=== PATIENT | male | born 1950 | race American Indian/Alaskan Native ===

== ENCOUNTER 2017-08-24 07:43 | Emergency (ER) | payer MEDICARE, OTHER ==
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
[2017-08-24 08:10] LABS: Basophils % (Auto) 0.2 % (0.0-1.8); Eosinophils % (Auto) 10.5 % (0.0-4.3); Hematocrit 42.3 % (35.5-45.6); Hemoglobin 14.1 gm/dl (11.8-15.2); Lymphocytes # (Auto) 2.5 K/mm3 (1.2-5.4); Lymphocytes % (Auto) 26.3 % (13.4-35.0); Mean Corpuscular HGB Conc 33 % (32-34); Mean Corpuscular Hemoglobin 31 pg (28-32); Mean Corpuscular Volume 92 fl (84-94); Monocytes # (Auto) 0.8 K/mm3 (0.0-0.8); Monocytes % (Auto) 8.6 % (0.0-7.3); Platelet Count 288 K/mm3 (140-440); Red Blood Count 4.61 M/mm3 (3.65-5.03)
[2017-08-24 08:24] LABS: INR 1.04 (0.87-1.13)
--- NOTE | 2017-08-24 08:29 | Cat Scan Report ---
CT HEAD WITHOUT CONTRAST: HISTORY: Headache. TECHNIQUE: Sequential 2.5mm CT images. COMPARISON: none. FINDINGS: Cerebral Parenchyma: Within normal limits. Cerebellum: Within normal limits. Brainstem: Within normal limits. Ventricles: Normal. Sella: Normal. Extra-axial spaces: Normal. Basal Cisterns: Normal. Intracranial Hemorrhage: None. Midline Shift: None. Calvarium: Normal. Sinuses: Normal. Mastoid Air Cells: Normal. Visualized Orbits: Normal. IMPRESSION: Cranial CT scan within normal limits.
--- NOTE | 2017-08-24 08:30 | Cat Scan Report ---
CT SCAN OF THE CERVICAL SPINE: HISTORY: Weakness. TECHNIQUE: Contiguous 1.25 mm axial images of the cervical spine were obtained. Sagittal and coronal reformatted images. FINDINGS: There is normal alignment of the cervical spine. The body, pedicles and posterior ligaments appear normal. No evidence of fracture or subluxation is seen. The spinal canal appears normal. The prevertebral soft tissues appear normal. IMPRESSION: Unremarkable CT of the cervical spine. No acute process is noted.
[2017-08-24] MEDS ORDERED: NACL 0.9% 1000 ML 1,000 ML ONE (08:54)
--- NOTE | 2017-08-24 08:55 | XRay Report ---
AP CHEST: HISTORY: Weakness Mild cardiomegaly and pulmonary venous congestion. The lungs are clear. No evidence for pneumonia, CHF or pneumothorax. The bony structures are grossly intact. IMPRESSION: Mild cardiomegaly and pulmonary venous congestion.
[2017-08-24] MEDS ORDERED: NACL 0.9% 1000 ML 1,000 ML IV ONE (09:13)
[2017-08-24 09:42] LABS: Bilirubin,Urine NEG (Negative); Blood,Urine NEG (Negative); Color,Urine Yellow (Yellow); Protein,Urine <15 mg/dL mg/dL (Negative); WBC,Urine < 1.0 /HPF (0.0-6.0)
[2017-08-24] MEDS ORDERED: NARCAN 0.4 MG/1 ML IV ONE (12:01)
[2017-08-24 12:18] LABS: Benzodiazepines Screen,Urine PRESUMPTIVE NEGATIVE; Cannabinoid Screen,Urine PRESUMPTIVE NEGATIVE; Methadone Screen,Urine PRESUMPTIVE NEGATIVE; Opiate Screen,Urine PRESUMPTIVE NEGATIVE
[2017-08-24 12:43] LABS: Amphetamine Screen,Urine PRESUMPTIVE POSITIVE; Cocaine Screen,Urine PRESUMPTIVE POSITIVE
[2017-08-24 13:48] LABS: BUN/Creatinine Ratio 9; Blood Urea Nitrogen 7 mg/dL (9-20); Calcium 8.8 mg/dL (8.4-10.2); Hemolysis Index 8
[2017-08-24] MEDS ORDERED: TESSALON PERLES PO ONE (13:58)
[2017-08-24 14:42] VITALS: BP 131/85
== END 2017-08-24 14:23 | disposition home or self-care (01) ==
LOC: ED 07:43
DX: S16.1XXA Strain of muscle, fascia and tendon at neck level, initial encounter (principal); R51 Headache; I10 Essential (primary) hypertension; F31.9 Bipolar disorder, unspecified; Z86.19 Personal history of other infectious and parasitic diseases; F43.10 Post-traumatic stress disorder, unspecified; F17.200 Nicotine dependence, unspecified, uncomplicated; V49.09XA Driver injured in collision with other motor vehicles in nontraffic accident, initial encounter; Y93.89 Activity, other specified; Y92.89 Other specified places as the place of occurrence of the external cause; Y99.8 Other external cause status; Z88.0 Allergy status to penicillin; Z88.6 Allergy status to analgesic agent
CPT/HCPCS: 36415; 70450; 71045; 72125; 80048; 80307; 81001; 82140; 82550; 83735; 84484; 85025; 85610; 93005; 93010; 96361; 96374; 99285; J2310; J7030